=== PATIENT | female | born 1995 | race Caucasian/White ===

== ENCOUNTER → 2018-02-14 | Outpatient (CLI) | payer BC ==
--- NOTE | 2018-02-14 15:55 | RADIOLOGY IMAGING REPORT ---
FACILITY: [facility] PATIENT NAME: DANILO NINO : [id number] MR: [id number] V: [id number] EXAM DATE: ORDERING PHYSICIAN: FIOR VILLALOBOS TECHNOLOGIST: Samantha Mejia PROCEDURE:US LEFT BREAST COMPARISON:None. INDICATIONS:PALPABLE LUMP 10 O'CLOCK POSITION OF THE LEFT BREAST. FINDINGS: There are numerous cysts identified throughout the Left breast in the 11, 12, 1, 2 & 3 o'clock positions of the Left breast. The largest is in the 1 o'clock position measuring 1.6 x 0.6 x 1.1cm. The cysts likely account for patient's palpable findings. Clinical follow-up recommended. DIAGNOSTIC CATEGORY 2--BENIGN FINDING. RECOMMENDATIONS: CLINICAL EVALUATION. IMPRESSION: BIRADS 2: Benign finding There are numerous Left breast cysts likely accounting for patient's palpable findings clinical follow-up recommended to document stability. Dictated by: Isi Horvath M.D. on 02/14/2018 at 10:40 Transcribed by: ROSA on 02/14/2018 at 11:02 Approved by: Isi Horvath M.D. on 02/14/2018 at 15:54 [facility]
== END ==
LOC: US 09:23
PROVIDERS: ATTEND Nurse Practitioner
DX: N60.02 Solitary cyst of left breast (principal)